=== PATIENT | male | born 1950 | race Caucasian/White ===

== ENCOUNTER 2016-07-17 10:50 | Outpatient (CLI) | payer OTHER | END 2016-07-17 10:51 | disposition home or self-care (01) | DX: R06.02 Shortness of breath (principal) ==

== ENCOUNTER 2016-07-17 12:52 | Outpatient (CLI) | payer OTHER ==
[2016-07-17] MEDS ORDERED: ALBUTEROL NEB 2.5 MG/3 ML INH ONE (14:05)
== END 2016-07-17 12:53 | disposition home or self-care (01) ==
DX: R53.83 Other fatigue (principal)
CPT/HCPCS: 94060; 94729; J7613

== ENCOUNTER 2016-08-01 13:48 | Outpatient (CLI) | payer OTHER | END 2016-08-01 13:49 | disposition home or self-care (01) | DX: R06.02 Shortness of breath (principal) ==

== ENCOUNTER 2019-09-10 10:09 | Outpatient (CLI) | payer MEDICARE, OTHER ==
--- NOTE | 2019-09-10 13:22 | CARDIAC PROCEDURE NOTE ---
DATE OF SERVICE: 09/10/2019 Physician: Kaylyn Moyer MD, [facility] INDICATIONS: Atrial fibrillation, atrial flutter. CARDIAC RISK FACTORS: Male gender, history of hypertension, hyperlipidemia. DESCRIPTION OF PROCEDURE: After signing informed consent, the patient underwent a Oswald-protocol treadmill stress test. No imaging was ordered with this test. RESTING HEART RATE: 63. PEAK HEART RATE: 111 (72% predicted maximum heart rate for age). RESTING BLOOD PRESSURE: 142/79. PEAK BLOOD PRESSURE: 231/74. The patient exercised on a Oswald-protocol treadmill for 5 minutes and 55 seconds, achieved a peak heart rate of 111 (72% PMHR) and 7.1 METs. The exercise was stopped due to excessive blood pressure response (greater than 200 systolic for several readings). The patient described no chest pain, and minimal shortness of breath with exercise to this level. Oxygen saturation was 94%-98% on room air throughout the test. The patient rated his perceived exertion at peak at 12/20 on the Darby scale. RESTING EKG: Normal sinus rhythm, first-degree AV block, left atrial enlargement, RSR' in V1, early R/S transition, biphasic T waves in leads V2 and V3. EKG WITH EXERCISE: T waves become flat in V2 and V3 at 1 minute of exercise. At peak, horizontal ST-segment depressions of 0.5 mm occur in V2 and V3 also. At 3 minutes of recovery, ST segments and T waves return to baseline in V2 and V3. SUMMARY: 1. Abnormal resting electrocardiogram. 2. Ischemic changes develop in V2 and V3, at this 71% predicted maximum heart rate. 3. Excessive blood pressure response to exercise, this caused cessation of the exercise portion before achieving target heart rate (despite the patient taking all his usual morning cardiac medications). 4. Fair exercise tolerance. 5. No imaging was ordered with this test. 6. This patient's cardiac risk based on all the above: Moderate-High. RECOMMENDATIONS: 1. Blood pressure control is needed. The patient states that he is no longer on a blood pressure medication, since it was stopped several years ago. 2. Consider repeat stress test with cardiac imaging, or proceeding to coronary angiography. cc: DO Christian Lloyd MD TD: 09/10/2019 11:44 [facility]
== END 2019-09-10 10:10 | disposition home or self-care (01) ==
LOC: DI 10:09
PROVIDERS: ATTEND Internal Medicine Cardiovascular Disease
DX: I48.92 Unspecified atrial flutter (principal); I48.0 Paroxysmal atrial fibrillation; I10 Essential (primary) hypertension; E78.5 Hyperlipidemia, unspecified
CPT/HCPCS: 93017